=== PATIENT | male | born 1935 | race Caucasian/White ===

== ENCOUNTER 2016-12-25 09:16 | Emergency (ER) | payer MEDICARE, OTHER ==
[2016-12-25 10:04] LABS: BASOPHILS 0.3 % (0.0-2.0); EOSINOPHILS 1.5 % (0-7); HEMATOCRIT 40.2 % (42.0-54.0); HEMOGLOBIN 13.3 g/dL (13.5-17.5); IMMATURE GRANULOCYTES 0.5 % (0-5); LYMPHOCYTES 17.6 % (15-50); MCH 30.6 pg (26.0-34.0); MCHC 33.1 g/dL (31.0-37.0); MCV 92.4 fL (80.0-100.0); MEAN PLATELET VOLUME 10.8 fL (7.4-10.4); MONOCYTES 8.6 % (2-11); NEUTROPHILS 71.5 % (40-80); PLATELET COUNT 175 10x3/uL (130-400); RBC 4.35 10x6/uL (4.20-6.10); RDW 13.1 % (11.5-14.5); WBC 6.6 10x3/uL (4.8-10.8)
[2016-12-25 10:18] LABS: ALBUMIN 3.6 g/dL (3.4-5.0); ALKALINE PHOSPHATASE 47 U/L (46-116); ALT (SGPT) 28 U/L (10-68); CALC OSMOLALITY 288 mosm/kg (275-300); CALCIUM 9.3 mg/dL (8.5-10.1); CARBON DIOXIDE 28.5 mmol/L (21.0-32.0); CHLORIDE - SERUM 105 mmol/L (98-107); CREATININE - SERUM 1.3 mg/dL (0.6-1.3); GLUCOSE 132 mg/dL (74-106); POTASSIUM - SERUM 4.5 mmol/L (3.5-5.1); PROTEIN - SERUM 6.9 g/dL (6.4-8.2); SODIUM 141 mmol/L (136-145); UREA NITROGEN 29 mg/dL (7-18); eGFR NON AFRICAN AMERICAN 56 mL/min (90-120)
[2016-12-25 10:57] LABS: CKMB 2.5 U/L (0.0-3.6); CREATINE KINASE 98 UL (21-232); TROPONIN-I < 0.017 ng/mL (0.000-0.060)
== END 2016-12-25 12:20 | disposition home or self-care (01) ==
LOC: D.ER 09:16
PROVIDERS: Emergency Medicine
DX: R09.1 Pleurisy (principal); I10 Essential (primary) hypertension; E11.9 Type 2 diabetes mellitus without complications; E78.00 Pure hypercholesterolemia, unspecified; I49.3 Ventricular premature depolarization

== ENCOUNTER → 2018-07-22 10:44 | Outpatient (CLI) | payer MEDICARE, OTHER ==
[~2018-07-22] VITALS: Ht 185.4 cm; Wt 115.5 kg
--- NOTE | ~2018-07-22 | HEMODYNAMI ---
PATIENT:TITI GOODWIN MEDICAL RECORD: [id number] : 37 LOCATION:[facility] ADMISSION DATE: 07/22/18 Generatedon:07/22/201814:27 Patient name: TITI GOODWIN Patient #: [id number] SSN: DO B: 1935 Date of study: 07/22/2018 Page: Of Hemodynamic Procedure Report Patient Data Patient Demographics Procedure consent was obtained First Name: TITI Gender: Male Last Name: CHRISTA : 1935 Middle Initial: KLAUS Age: 83 year(s) Patient #: [id number] Race: Unknown Additional ID: [id number] Contact details Address: [address] [place] [address] State: [place] City: [place] Zip code: [address] Admission Admission Data Admission Date: 07/22/2018 Admission Time: 10:44 Height (in.): 73 BSA: 2.38 (m2) Height (cm.): 185.42 BMI: 33.51 (kg/m2) Weight (lbs.): 254 Weight (kg.): 115.21 Procedure Procedure Types Cath Procedure Diagnostic Procedure [facility] w/Coronaries PCI Procedure Coronary Stent Coronary Stent Initial Procedure Description Procedure Date Procedure Date: 07/22/2018 Procedure Start Time: 13:59 Procedure End Time: 14:24 Procedure Staff Name Function Tom Hanks MD Performing Physician Rafa Prado RT Monitor Marco Tesfaye RN Nurse Neida Carpenter RT Scrub Procedure Data Cath Procedure Fluoroscopy Diagnostic fluoroscopy Total fluoroscopy Time: 6.8 time: 6.8 min min Diagnostic fluoroscopy Total fluoroscopy dose: dose: 1343 mGy 1343 mGy Contrast Material Contrast Material Type Amount (ml) Isovue 300 107 Entry Location Entry Primary Successful Side Size Upsize Upsize Entry Closure Gracia ccessful Closure Location (Fr) 1 (Fr) 2 (Fr) Remarks Device Remarks Radial Right 6 Fr Mechanical artery Short Compression Estimated blood loss: 10 ml Diagnostic catheters Device Type Used For End Catheter Placement DIAGNOSTIC Ben 110cm Procedure 5Fr catheter ([id number]) DIAGNOSTIC Jolon 110cm 5 Procedure Fr catheter (452425) Procedure Complications No complications Procedure Medications Medication Administration Route Dosage Oxygen etCO2 Nasal cannula 2 l/min Lidocaine 2% added to field 20 Heparin Flush Bag added to field 2 bags (1000units/500ml NS) 0.9% NaCl I.V. 100 ml/hr Radial Cocktail I.A. 1 syringe (Verapomil 2mg/Nitro 400mcg/Heparin 1500units) Versed I.V. 1 mg Fentanyl I.V. 50 mcg Versed I.V. 1 mg Fentanyl I.V. 50 mcg Heparin Bolus I.V. 74959 units Versed I.V. 1 mg Plavix P.O. 600 mg Hemodynamics Rest BSA: 2.38 (m2) O2 Consumption: Estimated: 264.24 (ml/min) O2 Consumption indexed : Estimated:111.03 (ml/min/m) Heart Rate: 62 (bpm) Pressure Samples Time Site Value (mmHg) Purpose Heart Use Rate(bpm) 14:01 LV 127/-3,10 Snapshot 66 14:18 AO 100/56(75) Snapshot 63 Gradients Valve Time Site Site Mean SEP/DFP Peak To Heart Use 1 2 (mmHg) (sec/min) Peak Rate (mmHg) (bpm) Aortic 14:02 LV AO 64 Snapshots Pre Cath Intra NCS Post Cath Vital Signs Time Heart Resp SPO2 etCO2 NIBP (mmHg) Rhythm Pain Sedation Rate (ipm) (%) (mmHg) Status Level (bpm) 13:41:21 62 17 99 0 150/87(124) NSR 0 (11) 10(A) , No pain 13:46:10 59 17 99 36.1 156/83(124) NSR 0 (11) 10(A) , No pain 13:50:57 59 11 96 0 134/76(104) NSR 0 (11) 10(A) , No pain 13:55:43 60 25 94 0 138/71(100) NSR 0 (11) 9(A) , No pain 14:00:30 61 12 93 0 130/63(86) NSR 0 (11) 9(A) , No pain 14:05:11 63 12 94 0 114/67(97) NSR 0 (11) 9(A) , No pain 14:10:32 61 19 93 0 122/68(101) NSR 0 (11) 9(A) , No pain 14:15:15 60 15 98 38.4 131/67(102) NSR 0 (11) 9(A) , No pain 14:20:00 59 13 95 42.1 117/68(89) NSR 0 (11) 10(A) , No pain 14:24:42 58 11 98 0 128/69(107) NSR 0 (11) 9(A) , No pain Medications Time Medication Route Dose Verified Delivered Reason Not es Effectiveness by by 13:48:36 Oxygen etCO2 2 l/min Tom Buffie used for Nasal Jacinto Tesfaye RN procedure cannula 13:48:45 Lidocaine 2% added 20ml Tom Tom for local to vial Jacinto Hanks MD anesthetic field 13:48:51 Heparin Flush added 2 bags Tom Tom used for Bag to Jacinto Hanks MD procedure (1000units/500ml field NS) 13:49:00 0.9% NaCl I.V. 100 Tom Buffie Per physician ml/hr Jacinto Tesfaye RN 13:49:36 Versed I.V. 1 mg Tom Buffie for sedation Jacinto Tesfaye RN 13:49:42 Fentanyl I.V. 50 mcg Tom Buffie for sedation Jacinto Tesfaye RN 13:54:10 Versed I.V. 1 mg Tom Buffie for sedation Jacinto Tesfaye RN 13:54:13 Fentanyl I.V. 50 mcg Tom Buffie for sedation Jacinto Tesfaye RN 14:00:04 Radial Cocktail I.A. 1 Tom Tom for (Verapomil syringe Jacinto Hanks MD vasodilation 2mg/Nitro 400mcg/Heparin 1500units) 14:12:14 Heparin Bolus I.V. 11,500 Tom Buffie for kae ified units Jacinto Tesfaye RN anticoagulation wtih dr hanks 14:14:18 Versed I.V. 1 mg Tom Buffie for sedation Jacinto Tesfaye RN 14:23:17 Plavix P.O. 600 mg Tom Buffie for Jacinto Tesfaye RN antiplatelet therapy Procedure Log Time Note 13:20:38 Time tracking: Regular hours (M-F 7:00 - 5:00) 13:20:42 Plan of Care:Hemodynamics will remain stable., Cardiac rhythm will remain stable., Comfort level will be maintained., Respiratory function will remain adequate., Patient/ family verbilizes understanding of procedure., Procedure tolerated without complication., Recovers from procedure without complications.. 13:27:47 Marco Tesfaye RN sent for patient. Start room use. 13:35:10 Patient received from Pre/Post Procedure Room to CCL 1 Alert and oriented. Tansferred to table in Supine position. 13:35:11 Warm blankets applied, and anisha hugger turned on for patient comfort. 13:35:11 Correct patient and procedure confirmed by team. 13:35:13 Signed procedure consent form obtained from patient. 13:35:14 ECG and BP/O2 sat monitors applied to patient. 13:35:15 Full Disclosure recording started 13:40:18 Vital chart was started 13:46:59 Baseline sample Acquired. 13:47:06 Rhythm: sinus bradycardia 13:47:18 H&P Date Dictated: 07/09/2018 Within 30 days and on chart., H&P Addendum completed by physician on day of procedure. (MUST COMPLETE FOR ALL OUTPATIENTS). 13:47:18 Pre-procedure instructions explained to patient. 13:47:19 Pre-op teaching completed and patient verbalized understanding. 13:47:23 Family in patients room. 13:47:25 Patient NPO since Midnight. 13:47:27 Is the patient allergic to Iodine/contrast media? No. 13:47:43 Is patient on blood thinner?No 13:47:48 Patient diabetic? Yes. 13:47:49 If diabetic: On Metformin? Yes 13:47:52 If on Metformin: Last Dose? 07/21/2018 13:47:54 Previous problem with sedation/anesthesia? No ? 13:47:55 Snore? Yes 13:47:56 Sleep apnea? No 13:47:57 Deviated septum? No 13:47:58 Opens mouth fully? Yes 13:47:59 Sticks out tongue? Yes 13:48:02 Airway obstruction? No ? 13:48:05 Dentures? Yes IN 13:48:09 Pre procedure: right dorsailis pedis pulse 1+ Palpable, but thready & weak; easily obliterated 13:48:26 Modified Leonardo's test Ulnar < 7 seconds 13:48:29 Patient pain scale 0/10 ?. 13:48:34 IV patent on arrival in left forearm with 0.9% NaCl at [facility]. 13:48:36 Oxygen 2 l/min etCO2 Nasal cannula was administered by Marco Tesfaye RN; used for procedure; 13:48:36 Lab results completed and on chart. 13:48:45 Lidocaine 2% 20ml vial added to field was administered by Tom Hanks MD; for local anesthetic; 13:48:48 Right Radial & Right Groin area was prepped with chlora-prep and draped in sterile fashion 13:48:50 Alarms reviewed by R. N. 13:48:50 Sharps counted by scrub and verified by R.N. 13:48:51 Heparin Flush Bag (1000units/500ml NS) 2 bags added to field was administered by Tom Hanks MD; used for procedure; 13:48:51 --------ALL STOP TIME OUT------ 13:48:52 Final Timeout: patient, procedure, and site verified with staff and physician. All members of the team are in agreement. 13:48:54 Right Radial & Right Groin site verified by team. 13:48:57 Physical assessment completed. ASA score P 2 - A patient with mild systemic disease as per Tom Hanks MD. 13:49:00 0.9% NaCl 100 ml/hr I.V. was administered by Marco Tesfaye RN; Per physician; 13:49:00 Sedation plan: IV Moderate Sedation Medication:Versed, Fentanyl 13:49:36 Versed 1 mg I.V. was administered by Marco Tesfaye RN; for sedation; 13:49:42 Fentanyl 50 mcg I.V. was administered by Marco Tesfaye RN; for sedation; 13:54:10 Versed 1 mg I.V. was administered by Marco Tesfaye RN; for sedation; 13:54:13 Fentanyl 50 mcg I.V. was administered by Marco Tesfaye RN; for sedation; 13:56:34 Use device set Radial Dx or PCI 13:57:42 Tegaderm 4 x 4 (1626W) opened to sterile field. 13:57:43 ACIST Manifold (92578) opened to sterile field. 13:57:44 ACIST Hand Control (31765) opened to sterile field. 13:57:45 ACIST Syringe (46314) opened to sterile field. 13:57:46 Medline Cath Pack ([id number]) opened to sterile field. 13:57:47 Zero performed for pressure channel P1 13:58:37 Bag Decanter (2001S) opened to sterile field. 13:58:40 DIAGNOSTIC WIRE .035 260cm J wire (160369) opened to sterile field. 13:58:41 MBrace Wrist Support ([id number]) opened to sterile field. 13:58:42 SHEATH 6Fr Prelude Radial ([id number]) opened to sterile field. 13:58:52 Procedure started. 13:59:01 Local anesthetic to right radial artery with Lidocaine 2% by Tom Hanks MD.INITIAL ACCESS ONLY 13:59:35 A 6 Fr Short sheath was inserted into the Right Radial artery 14:00:04 Radial Cocktail (Verapomil 2mg/Nitro 400mcg/Heparin 1500units) 1 syringe I.A. was administered by Tom Hanks MD; for vasodilation; 14:00:21 A DIAGNOSTIC Ben 110cm 5Fr catheter (402772) was advanced over the wire and used for Procedure. 14:01:50 LV angiography performed. 14:01:51 LV gram done using FOSTER 14:02:02 EF : 60 % 14:02:05 LV hemodynamics recorded. 14:02:33 Injector settings: Ml/sec: 5, Volume: 15, 14:03:04 RCA angiography performed. 14:04:22 Catheter exchanged over wire. 14:05:36 A DIAGNOSTIC Jolon 110cm 5 Fr catheter (671188) was advanced over the wire and used for Procedure. 14:05:43 LCA angiography performed. 14:06:32 Catheter exchanged over wire. 14:06:36 Use device set HANKS PCI 14:06:47 GUIDE 6FR XBLAD 4.0 catheter (13993768) opened to sterile field. 14:06:50 BMW 300cm [place] 2 J wire ([id number]) opened to sterile field. 14:06:52 INFLATOR Merit BasixCompak (MM4054) opened to sterile field. 14:06:53 TUBING High Pressure Extension Tubing (Hanks) (DJ2088E) opened to sterile field. 14:08:18 6 Fr XBLAD 4 guide catheter was inserted over the wire 14:10:04 Guide Catheter removed. unable to cannulate vessel. 14:10:07 GUIDE 6FR XBLAD 3.5 catheter (30395188) opened to sterile field. 14:10:14 6 Fr XBLAD 3.5 guide catheter was inserted over the wire 14:10:52 Patient Weight : 254 lbs 14:10:58 Patient Height : 73 inches 14:11:51 BMW wire advanced. 14:12:14 Heparin Bolus 11,500 units I.V. was administered by Marco Tesfaye RN; for anticoagulation; verified wtih dr hanks 14:14:18 Versed 1 mg I.V. was administered by Marco Tesfaye RN; for sedation; 14:14:38 Wire advanced across lesion. 14:18:46 Place stent Inflation Number: 1 A INTEGRITY OTW 3.0 X 26 stent ([id number]) was prepped and advanced across the Mid LAD. The stent was deployed at 16 COLE for 0:10 (min:sec). 14:19:42 Stent catheter was removed intact over wire. 14:20:13 Wire removed. 14:20:14 Guide catheter removed. 14:20:18 TR BAND Standard ([id number]) opened to sterile field. 14:20:29 Sheath removed intact; hemostasis achieved with Mechanical Compression to the Right Radial artery. 14:20:34 Procedure ended.(Physican Out) 14:20:52 Fluoroscopy time 06.80 minutes. 14:20:56 Fluoroscopy dose: 1343 mGy 14:20:56 Flurop Dose total: 1343 14:21:00 Contrast amount:Isovue 300 107ml. 14:21:02 Sharps counted by scrub and verified by R.N. 14:21:17 TR band inflated with 12cc of air. 14:21:19 Insertion/operative site no bleeding no hematoma. 14:23:17 Plavix 600 mg P.O. was administered by Marco Tesfaye RN; for antiplatelet therapy; 14:23:19 Post Procedure Pulses reassessed and unchanged 14:23:24 Post-procedure physical assessment completed. ASA score P 2 - A patient with mild systemic disease as per Tom Hanks MD. 14:24:01 Post procedure rhythm: unchanged. 14:24:05 Estimated blood loss: 10 ml 14:24:13 Post procedure instruction explained to patient.Patient verbalizes understanding. 14:24: Patient needs reinforcement of post procedure teaching. 14:24:18 Procedure type changed to Cath procedure, Diagnostic procedure, LHC, LHC w/Coronaries, PCI procedure, Coronary Stent, Coronary Stent Initial 14:24:21 Procedure Complication : No complications 14:24:45 Procedure and supply charges have been captured, reviewed, submitted and are correct. 14:24:47 Vital chart was stopped 14:24:47 See physician's report for complete and final results. 14:24:51 Report given to Pre/Post Procedure Room. 14:24:54 Patient transfered to Pre/Post Procedure Room with Stretcher. 14:24:57 Procedure ended. 14:24:57 Full Disclosure recording stopped 14:26:55 End room use (Document Last) Intervention Summary Intervention Notes Time ActionType Lesion and Equipment Action# Pressure Duration Attributes Used 14:18:46 Place stent Mid LAD INTEGRITY 1 16 00:10 OTW 3.0 X 26 stent ([id number]) Device Usage Item Name Manufacture Quantity Catalog Number Hospital Part Current M inimal Lot# / Charge Number Stock Stock Serial# Code Tegaderm 4 x 4 3M 1 1626W 348707 187716 994019 5 (1626W) ACIST Manifold Acist 1 50190 516240 798586 013626 5 (07419) [employer] Inc ACIST Hand Acist 1 20956 124238 323083 754216 5 Control (99454) [employer] Inc ACIST Syringe Acist 1 70456 275812 553129 895779 2 0 (97772) Medical Systems Inc Medline Cath Cardinal 1 [id number] 604059 [address] [facility] ([id number]) Bag Decanter Microtek 1 2001S 269309 13101 537417 5 (2001S) Medical Inc. DIAGNOSTIC WIRE St Mike 1 458344 613034 219259 406492 3 0 .035 260cm J wire (678316) MBrace Wrist Advanced 1 140-0250-00 817381 39353 493918 5 Support Vascular ([id number]) Dynamics SHEATH 6Fr Merit 1 [id number] 440480 951236 621237 5 Prelude Radial Medical ([id number]) DIAGNOSTIC Terumo 1 40-5023 536907 506635 539859 5 Ben 110cm 5Fr catheter (244964) DIAGNOSTIC Terumo 1 40-5013 122501 498170 430935 5 Jolon 110cm 5 Fr catheter (943398) GUIDE 6FR XBLAD Cardinal 1 [id number] 967072 999309 910354 3 4.0 catheter Health (60449652) BMW 300cm Mendez 1 [id number] 962005 192023 913079 5 [place] 2 J Vascular wire (4989247Z) INFLATOR Merit Merit 1 LK2728 325705 346411 354772 1 5 BasixCompak Medical (NB9103) TUBING High Merit 1 [id number] 227869 56242 868234 1 0 Pressure Medical Extension Tubing (Hanks) (AK6624W) GUIDE 6FR XBLAD Cardinal 1 [id number] 059552 341581 636195 1 0 3.5 catheter Health (57039529) INTEGRITY OTW Medtronic 1 [id number] 553346 637520 4 [id number] 3.0 X 26 stent ([id number]) TR BAND Terumo 1 [id number] 429722 722373 619944 4 0 Standard (WLN40TOM) Signature Audit Sidney Stage Time Signature Unsigned Intra-Procedure 07/22/2018 Rafa Prado 2:27:18 PM RT(R) Signatures Monitor : Rafa Prado RT Signature : Date : Time : [id number] [place] [address]
[~2018-07-22 10:44] MED LIST: ACTOS15 MG PO; BAYER CHEWABLE81 MG PO; BENICAR20 MG PO; GLIMEPIRIDE1 MG PO; GLUCOPHAGE1000 MG PO; HCTZ25 MG PO; HYTRIN1 MG PO; PLAVIX75 MG PO; VITAMIN B650 MG PO; ZOCOR40 MG PO
[2018-07-22 11:30] VITALS: BP 144/71; Ht 185.4 cm; Wt 115.5 kg
[2018-07-22 11:34] LABS: BASOPHILS 0.4 % (0-2); EOSINOPHILS 2.7 % (0-7); HEMATOCRIT 36.9 % (42.0-54.0); HEMOGLOBIN 12.3 g/dL (13.5-17.5); IMMATURE GRANULOCYTES 0.2 % (0-5); LYMPHOCYTES 30.2 % (15-50); MCH 30.1 pg (26.0-34.0); MCHC 33.3 g/dL (31.0-37.0); MCV 90.4 fL (80.0-100.0); MEAN PLATELET VOLUME 10.1 fL (7.4-10.4); MONOCYTES 14.9 % (2-11); NEUTROPHILS 51.6 % (40-80); PLATELET COUNT 173 10x3/uL (130-400); RBC 4.08 10x6/uL (4.20-6.10); RDW 13.6 % (11.5-14.5); WBC 5.6 10x3/uL (4.8-10.8)
[2018-07-22 11:43] LABS: ANION GAP 15.8 mmol/L (8-16); CARBON DIOXIDE 24.8 mmol/L (21.0-32.0); CREATININE - SERUM 1.5 mg/dL (0.6-1.3); POTASSIUM - SERUM 4.6 mmol/L (3.5-5.1)
== END | disposition home or self-care (01) ==
LOC: D.CATH 10:44
PROVIDERS: Internal Medicine Cardiovascular Disease
DX: I25.119 Atherosclerotic heart disease of native coronary artery with unspecified angina pectoris (principal); Z01.812 Encounter for preprocedural laboratory examination

== ENCOUNTER 2018-09-29 11:29 | Outpatient (CLI) | payer MEDICARE, OTHER ==
[~2018-09-29] VITALS: Ht 185.4 cm; Wt 119.1 kg
--- NOTE | ~2018-09-29 | HEMODYNAMI ---
PATIENT:TITI GOODWIN MEDICAL RECORD: [id number] : 37 LOCATION:[facility] ADMISSION DATE: 09/29/18 Generatedon:09/29/201815:13 Patient name: TITI GOODWIN Patient #: [id number] SSN: DO B: 1935 Date of study: 09/29/2018 Page: Of Hemodynamic Procedure Report Patient Data Patient Demographics Procedure consent was obtained First Name: TITI Gender: Male Last Name: CHRISTA : 1935 Middle Initial: KLAUS Age: 83 year(s) Patient #: [id number] Race: Unknown Additional ID: [id number] Contact details Address: [address] [place] [address] State: [place] City: [place] Zip code: [address] Past Medical History Allergies: No known allergies Admission Admission Data Admission Date: 09/29/2018 Admission Time: 11:29 Admit Source: Other Lab Results Lab Result Date: 09/29/2018 Lab Result Time: 0:00 Biochemistry Name Units Result Min Max BUN mg/dl 44 --(----)-* 7 18 Creatinine mg/dl 1.9 --(----)-* 0.6 1.3 CBC Name Units Result Min Max Hemoglobin g/dl 11.3 *-(----)-- 13.5 17.5 Procedure Procedure Types Cath Procedure Diagnostic Procedure PPM/ICD PPM Dual Implant Sedation Charges Moderate Sedation up to 15 minutes Procedure Description Procedure Date Procedure Date: 09/29/2018 Procedure Start Time: 14:39 Procedure End Time: 15:10 Procedure Staff Name Function Cheo Torres MD Performing Physician Kvng Bojorquez MD Assisting physician Merly Cabrales RT Monitor Neida Carpenter RT Scrub Pepe Vaughn RN Nurse Procedure Data Cath Procedure Fluoroscopy Diagnostic fluoroscopy Total fluoroscopy Time: 2.8 time: 2.8 min min Diagnostic fluoroscopy Total fluoroscopy dose: 247 dose: 247 mGy mGy Contrast Material Contrast Material Type Amount (ml) Isovue 300 0 Estimated blood loss: 10 ml Procedure Complications No complications Procedure Medications Medication Administration Route Dosage 0.9% NaCl I.V. 100 ml/hr Oxygen etCO2 Nasal cannula 2 l/min Ancef (1Gm/50ml NS) I.V.P.B 1 g Ancef Irrigation 1 g (1gm/500ml NS) Lidocaine 1% with added to field 40 ml Epi Versed I.V. 2 mg Fentanyl I.V. 100 mcg Fentanyl I.V. 50 mcg Versed I.V. 1 mg Bupivacaine 0.5% added to field 10 ml Lopressor I.V. 5 mg Hemodynamics Rest HGB: 11.3 (g/dl) Heart Rate: 39 (bpm) Snapshots Pre Cath Intra NCS Post Cath Vital Signs Time Heart Resp SPO2 etCO2 NIBP (mmHg) Rhythm Pain Sedation Rate (ipm) (%) (mmHg) Status Level (bpm) 14:09:37 33 11 98 34.6 173/61(134) 2 0 (11) 10(A) degree , No AV pain Block Type II 14:14:05 35 18 100 35.4 172/75(134) 2 0 (11) 10(A) degree , No AV pain Block Type II 14:18:40 36 15 99 30.8 169/57(128) 2 0 (11) 10(A) degree , No AV pain Block Type II 14:23:12 35 12 95 0.7 143/59(114) 2 0 (11) 10(A) degree , No AV pain Block Type II 14:27:37 32 10 96 0 134/57(110) 2 0 (11) 10(A) degree , No AV pain Block Type II 14:31:59 33 11 98 15.8 148/53(101) 2 0 (11) 10(A) degree , No AV pain Block Type II 14:38:03 35 10 95 1.5 152/65(119) 2 0 (11) 10(A) degree , No AV pain Block Type II 14:42:32 36 19 94 0 141/56(96) 2 0 (11) 9(A) degree , No AV pain Block Type II 14:47:49 70 19 96 1.5 133/59(83) 2 0 (11) 9(A) degree , No AV pain Block Type II 14:52:07 37 19 97 0 139/63(96) 2 0 (11) 9(A) degree , No AV pain Block Type II 14:56:29 33 10 96 0 132/58(99) Paced 0 (11) 9(A) , No pain 15:00:48 60 14 98 0 142/62(105) Paced 0 (11) 9(A) , No pain 15:05:06 64 12 97 0 139/69(111) Paced 0 (11) 9(A) , No pain 15:09:26 61 14 97 0 124/64(113) Paced 0 (11) 9(A) , No pain Medications Time Medication Route Dose Verified Delivered Reason Notes Effectiv eness by by 14:18:06 0.9% NaCl I.V. 100 Pepe Pepe Per ml/hr Lorigan Lorigan physician RN RN 14:18:22 Oxygen etCO2 2 Pepe Pepe Per Nasal l/min Lorigan Lorigan physician cannula RN RN 14:19:04 Ancef I.V.P.B 1 g Pepe Pepe Per (1Gm/50ml Lorigan Lorigan physician NS) RN RN 14:19:33 Ancef Topical 1 g Pepe Pepe used for Irrigation added Lorigan Lorigan procedure (1gm/500ml to RN RN NS) field 14:27:16 Lidocaine added 40ml Ppee Pepe for local 1% with Epi to Lorigan Lorigan anesthetic field RN RN 14:35:10 Versed I.V. 2 mg Pepe Pepe for Lorigan Lorigan sedation RN RN 14:35:17 Fentanyl I.V. 100 Pepe Pepe for mcg Lorigan Lorigan sedation RN RN 14:38:17 Fentanyl I.V. 50 Pepe Pepe for mcg Lorigan Lorigan sedation RN RN 14:38:34 Versed I.V. 1 mg Pepe Pepe for Lorigan Lorigan sedation RN RN 14:44:23 Bupivacaine added 10 ml Pepe Pepe for local 0.5% to Lorigan Lorigan anesthetic field RN RN 14:49:43 Lopressor I.V. 5 mg Pepe Pepe for Lorigan Lorigan arrhythmia RN electrocardiograph operator Log Time Note 13:52:27 Informed consent obtained and on chart 13:52:32 Admit Source: Other 13:52:54 Diagnostic Cath status Elective 13:52:55 Time tracking: Regular hours (M-F 7:00 - 5:00) 13:53:00 Plan of Care:Hemodynamics will remain stable., Cardiac rhythm will remain stable., Comfort level will be maintained., Respiratory function will remain adequate., Patient/ family verbilizes understanding of procedure., Procedure tolerated without complication., Recovers from procedure without complications.. 13:53:21 Pepe Vaughn RN sent for patient. Start room use. 13:59:04 Patient received from Pre/Post Procedure Room to CCL 2 Alert and oriented. Tansferred to table in Supine position. 13:59:06 Warm blankets applied, and anisha hugger turned on for patient comfort. 13:59:06 Correct patient and procedure confirmed by team. 13:59:22 H&P Date Dictated: 09/23/2018 Within 30 days and on chart.. 13:59:24 Pre-procedure instructions explained to patient. 13:59:26 Pre-op teaching completed and patient verbalized understanding. 13:59:28 Family in waiting room. 13:59:30 Patient NPO since Midnight. 13:59:39 Patient allergic to No known allergies 13:59:42 Is the patient allergic to Iodine/contrast media? No. 13:59:43 Was the patient premedicated? Yes 14:08:15 Vital chart was started 14:08:18 Full Disclosure recording started 14:12:58 Baseline sample Acquired. 14:13:04 Rhythm: sinus bradycardia 14:13:20 Is patient on blood thinner?No 14:13:22 Patient diabetic? No. 14:13:27 Snore? No 14:13:28 Sleep apnea? No 14:13:36 Dentures? Yes in tight 14:13:41 Patient pain scale 0/10 ?. 14:13:50 IV patent on arrival in left forearm with 0.9% NaCl at [facility]. 14:18:06 0.9% NaCl 100 ml/hr I.V. was administered by Pepe Vaughn RN; Per physician; 14:18:22 Oxygen 2 l/min etCO2 Nasal cannula was administered by Pepe Vaughn RN; Per physician; 14:18:41 Lab results completed and on chart. 14:19:04 Ancef (1Gm/50ml NS) 1 g I.V.P.B was administered by Pepe Vaughn RN; Per physician; 14:19:33 Ancef Irrigation (1gm/500ml NS) 1 g Topical added to field was administered by Pepe Vaughn RN; used for procedure; 14:19:40 Lab Result : Creatinine 1.9 mg/dl 14::40 Lab Result : BUN 44 mg/dl 14:19:40 Lab Result : Hemoglobin 11.3 g/dl 14:19:51 Right chest area was prepped with chlora-prep and draped in sterile fashion 14:19:53 Alarms reviewed by R. N. 14:19:54 Sharps counted by scrub and verified by R.N. 14:19:55 Physician paged 14:21:07 Medtronic Advisa MRI PPM Dual Generator [id number] opened to sterile field. 14:21:07 Medtronic 4574-53 PPM Lead opened to sterile field. 14:21:08 Medtronic 4074-58 PPM Lead opened to sterile field. 14:27:16 Lidocaine 1% with Epi 40ml added to field was administered by Pepe Vaughn RN; for local anesthetic; 14:34:22 Physician arrived 14:34:23 --------ALL STOP TIME OUT------ 14:34:32 Final Timeout: patient, procedure, and site verified with staff and physician. All members of the team are in agreement. 14:34:39 Right chest site verified by team. 14:34:48 Physical assessment completed. ASA score P 2 - A patient with mild systemic disease as per Cheo Torres MD. 14:34:52 Sedation plan: IV Moderate Sedation Medication:Versed, Fentanyl 14:35:10 Versed 2 mg I.V. was administered by Pepe Vaughn RN; for sedation; 14:35:17 Fentanyl 100 mcg I.V. was administered by Pepe Vaughn RN; for sedation; 14:35:31 Procedure started. 14:36:04 Use device set HANK PPM 14:36:54 [employer] representative RANJITH present for procedure. 14:38:17 Fentanyl 50 mcg I.V. was administered by Pepe Vaughn RN; for sedation; 14:38:34 Versed 1 mg I.V. was administered by Pepe Vaughn RN; for sedation; 14:39:08 Grounding pad site Left thigh. 14:39:15 Lidocaine 1% w/epi was administered to right subclavicular area by Kvng Bojorquez MD . 14:39:19 Incision made to right subclavicular area. 14:39:25 Generator pocket made/opened. 14:43:41 PEELAWAY 9FR Safe Sheath (SU9) opened to sterile field. 14:44:08 Ventricular lead inserted and advanced. 14:44:22 PEELAWAY 7FR Safe Sheath (SU7) opened to sterile field. 14:44:23 Bupivacaine 0.5% 10 ml added to field was administered by Pepe Vaughn RN; for local anesthetic; 14:44:36 Cautery Tip Litigation Legal Assistant opened to sterile field. 14:44:37 Cautery Pushbutton Pencil opened to sterile field. 14:44:39 Mepilex Dressing (551773) opened to sterile field. 14:44:41 Immobilizer Extra Large opened to sterile field. 14:45:08 Atrial lead inserted and advanced. 14:49:43 Lopressor 5 mg I.V. was administered by Pepe Vaughn RN; for arrhythmia; 14:57:40 PPM Dual was attached to lead(s) and inserted into pocket. 14:57:47 Device pocket was irrigated with Ancef. 14:57:55 Ventricular lead attachment was completed with 2-0 silk. 14:58:00 Atrial lead attachment was completed with 2-0 silk. 14:59:58 Parameters-- Generator: Mode: DDDR. Lower Rate: 70bpm. Upper Rate: 120bpm. 15:00:55 Parameters--Ventricular P/R Wave: 19mV. Current: .3mA; Threshold: .3V; Impedence: 1190OHMS. 15:01:20 Parameters--Atrial P/R Wave: 3.7mV. Current: .40mA; Threshold: .3V; Impedence: 509OHMS. 15:01:27 Rt Chest incision was dressed with Mepilex dressing. 15:07:37 Procedure ended.(Physican Out) 15:07:58 Fluoroscopy time 02.80 minutes. 15:08:09 Fluoroscopy dose: 247 mGy 15:08:09 Flurop Dose total: 247 15:08:14 Contrast amount:Isovue 300 0ml. 15:08:16 Sharps counted by scrub and verified by R.N. 15:08:24 Insertion/operative site no bleeding no hematoma. 15:08:40 Post-op/insertion site Right Subclavian vein dressed using a Mepilex dressing. 15:08:50 Post right subclavian vein:stable 15:08:53 Post Procedure Pulses reassessed and unchanged 15:08:59 Post-procedure physical assessment completed. ASA score P 2 - A patient with mild systemic disease as per Cheo Torres MD. 15:09:04 Post procedure rhythm: paced 15:09:10 Estimated blood loss: 10 ml 15:09:11 Post procedure instruction explained to patient.Patient verbalizes understanding. 15:09:45 Procedure type changed to Cath procedure, Diagnostic procedure, PPM/ICD, PPM Dual Implant, Sedation Charges, Moderate Sedation up to 15 minutes 15:09:47 Procedure and supply charges have been captured, reviewed, submitted and are correct. 15:10:34 Procedure Complication : No complications 15:10:38 Vital chart was stopped 15:10:42 See physician's report for complete and final results. 15:10:45 Report given to Med II. 15:10:50 Patient transfered to Med II with Bed. 15:10:53 Procedure ended. 15:10:53 Full Disclosure recording stopped 15:11:01 End room use (Document Last) Device Usage Item Name Manufacture Quantity Catalog Hospital Part Current Minimal Lo t# / Number Charge Number Stock Stock Serial# Code Medtronic Medtronic 1 A2DR01 [id number] 5 Advisa MRI PV [id number] PPM Dual EX P.2 Generator 02 A2DR01 Medtronic Medtronic 1 4574-53 276975 526676 5 4574-53 PPM BB [id number] Lead EX P. 2020-07-30 Medtronic Medtronic 1 4074-58 [id number] [id number] 5 4074-58 PPM BB [id number] Lead EX P. 2020-04-03 PEELAWAY Microtek 1 SU9 [id number] [id number] 5 9FR Safe Medical Inc. Sheath (SU9) PEELAWAY Microtek 1 SU7 673322 510087 222258 10 7FR Safe [employer] Inc[employer] Sheath (SU7) Cautery Tip Microtek 1 [id number] 796402 221453 231080 5 Litigation Legal Assistant [employer] Cautery Microtek 1 [id number] 539546 24033 636149 5 Pushbutton Medical Inc. Pencil Mepilex Cardinal 1 546727 697600 289108 [id number] 5 Dressing Health (758547) Immobilizer Cardinal 1 [id number] 396670 284503 556993 5 Extra Large Health Signature Audit [place] [facility] Stage Time Signature Unsigned Intra-Procedure 09/29/2018 Merly Cabrales 3:13:00 PM RT(R) Signatures Monitor : Merly Cabrales Signature : RT Date : Time : [id number] [place] [address]
--- NOTE | ~2018-09-29 | OP ---
PATIENT NAME: TITI SANDOVAL MEDICAL RECORD: [id number] :37 LOCATION:D.CAT ADMISSION DATE: SURGEON: WES WALTON MD DATE OF OPERATION: 09/29/2018 PROCEDURE: Lead portion of permanent pacemaker placement. SURGEON: Kvng Bojorquez MD INDICATION: High-degree AV block, 2:1 AV block. DESCRIPTION OF PROCEDURE: After right subclavian was cannulated via modified Seldinger technique via Dr. Bojorquez, first, under fluoroscopic guidance, I placed the RV lead in RV apex without difficulty. After adequate thresholds and R waves obtained, again under fluoroscopic guidance, I placed the right atrial lead in right atrial appendage without difficulty. After adequate P waves and thresholds were obtained, the leads were attached to appropriate poles of the generator and the pocket was closed via Dr. Bojorquez. IMPRESSION: Successful lead portion of permanent pacemaker on Titi Sandoval. ESTIMATED BLOOD LOSS: Minimal. DISPOSITION: To the floor, stable. TRANSINT:[id number] Voice Confirmation ID: [id number] DOCUMENT ID: [id number] WES WALTON MD at 1303 CC: [id number] DICTATION DATE: 09/29/18 1502 PERSONNEL RESEARCH SCIENTIST: 09/29/18 1601 DEP CLI 09/30/18 [id number] [place] [address]
--- NOTE | ~2018-09-29 | OP ---
PATIENT NAME: TITI GOODWIN MEDICAL RECORD: [id number] :37 LOCATION:D.CAT ADMISSION DATE: SURGEON: KVNG SMITH MD DATE OF OPERATION: 09/29/2018 PREOPERATIVE DIAGNOSIS: 2:1 heart block. POSTOPERATIVE DIAGNOSIS: 2:1 heart block. PROCEDURE: Pacemaker pocket placement as well as introduction of leads into the central venous circulation. This is a cosurgeon case. OCEANOLOGIST: Cheo Corrigan MD GENERAL SURGEON: Kvng Smith MD The risks, possible complications and alternatives to the procedure were explained to the patient. He elects to proceed. OPERATIVE COURSE: The patient was conveyed to the cardiac catheterization laboratory today. IV sedation was induced by the nursing staff under my direction. The right chest was sterilely prepped and draped. Local anesthetic was used to infiltrate the skin and subcutaneous tissues in the right infraclavicular anterior chest. Transverse incision was accomplished. A subcutaneous pocket was created in a caudad direction. Through the pocket, I accessed the right subclavian vein. Under fluoroscopy, I watched as the guidewire went down the right innominate vein and then into the superior vena cava. A 9-Upper Sorbian dilator sheath was advanced. The dilator was removed. Through the sheath, a ventricular lead was placed. The Peel-Away sheath was then removed. Dr. Cheo Corrigan then positioned the lead and obtained appropriate thresholds. I sutured the lead down to the underlying pectoralis muscle and fascia with 2-0 Ti-Cron sutures. Over the secondary lead, a 7-Upper Sorbian dilator sheath was advanced. The dilator and wire were removed. Through the sheath, the atrial lead was advanced. The Peel-Away sheath was removed. Dr. Cheo Corrigan then positioned the atrial lead. Appropriate thresholds were obtained. I then sutured the lead down to the underlying pectoralis fascia and muscle with 2-0 Ti-Crons. We confirmed the ventricular lead serial number and this was placed in the ventricular dock of the pacemaker generator. We then confirmed the atrial lead serial number and placed this in the atrial dock of the pacemaker generator. I locked down both leads with a wrench. I tried to dislodge the lead and was unable to do so. I then placed the pacemaker in the pacemaker pocket with care paid to place the leads posterior to the pacemaker generator. I irrigated the pacemaker pocket. The subdermis was approximated with interrupted 3-0 Vicryls. The skin was approximated with a running intracuticular 3-0 Vicryl. Sterile dressings were applied. I then checked one more time under fluoroscopy. The ventricular lead and atrial lead appeared to be well positioned and had not been dislodged. TRANSINT:[id number] Voice Confirmation ID: [id number] DOCUMENT ID: [id number] OPERATIVE REPORT [id number] TITI GOODWIN, KVNG COTO at 1653 CC: [id number] DICTATION DATE: 09/29/18 1600 HUMAN RESOURCES HR REPRESENTATIVE: 09/29/18 2146 DEP CLI 09/30/18 [id number] [place] [address]
[2018-09-29 12:29] VITALS: BP 160/56; BMI 33.7
[2018-09-29 13:10] LABS: HEMATOCRIT 34.9 % (42.0-54.0); HEMOGLOBIN 11.3 g/dL (13.5-17.5); MCH 29.7 pg (26.0-34.0); MCHC 32.4 g/dL (31.0-37.0); MCV 91.8 fL (80.0-100.0); MEAN PLATELET VOLUME 10.5 fL (7.4-10.4); RBC 3.8 10x6/uL (4.20-6.10); RDW 13.8 % (11.5-14.5); WBC 5.6 10x3/uL (4.8-10.8)
[2018-09-29 13:20] LABS: ANION GAP 9.4 mmol/L (8-16); CARBON DIOXIDE 29.2 mmol/L (21.0-32.0); CREATININE - SERUM 1.9 mg/dL (0.6-1.3); POTASSIUM - SERUM 4.6 mmol/L (3.5-5.1)
[2018-09-29 13:31] LABS: APTT 29.3 SECONDS (22.8-39.4); INR 1.07 (0.85-1.17); PROTIME 13.6 SECONDS (11.6-15.0)
[2018-09-29 15:52] VITALS: BP 138/79; Ht 185.4 cm; Wt 119.1 kg
[2018-09-29 20:00] VITALS: BP 171/78
[2018-09-30 01:24] VITALS: BP 148/88
[2018-09-30 06:19] VITALS: BP 128/67
[2018-09-30 09:55] VITALS: BP 156/84
[2018-09-30 09:59] VITALS: BP 156/84
== END 2018-09-30 10:10 | disposition home or self-care (01) ==
LOC: D.CATH 11:29 → D.M2 15:10 → D.CATH 09-30 10:10
PROVIDERS: Internal Medicine Interventional Cardiology
DX: I44.1 Atrioventricular block, second degree (principal); I10 Essential (primary) hypertension; E11.9 Type 2 diabetes mellitus without complications; Z87.891 Personal history of nicotine dependence

== ENCOUNTER 2019-05-10 09:50 | Emergency (ER) | payer MEDICARE, OTHER ==
[~2019-05-10] VITALS: Ht 185.4 cm; Wt 118.2 kg
[2019-05-10 09:55] VITALS: Ht 185.4 cm; Wt 118.2 kg
[2019-05-10 10:21] LABS: BASOPHILS 1.5 % (0-2); EOSINOPHILS 4.8 % (0-7); HEMATOCRIT 34.9 % (42.0-54.0); HEMOGLOBIN 11.6 g/dL (13.5-17.5); IMMATURE GRANULOCYTES 0.8 % (0-5); LYMPHOCYTES 23.8 % (15-50); MCHC 33.2 g/dL (31.0-37.0); MCV 90.2 fL (80.0-100.0); MEAN PLATELET VOLUME 9.5 fL (7.4-10.4); MONOCYTES 8.6 % (2-11); NEUTROPHILS 60.5 % (40-80); PLATELET COUNT 202 10x3/uL (130-400); RBC 3.87 10x6/uL (4.20-6.10); RDW 13.8 % (11.5-14.5); WBC 4.8 10x3/uL (4.8-10.8)
[2019-05-10 10:39] LABS: APTT 30.3 SECONDS (22.8-39.4); INR 1.02 (0.85-1.17); PROTIME 12.9 SECONDS (11.6-15.0)
[2019-05-10 10:41] LABS: ALBUMIN 3.1 g/dL (3.4-5.0); ALKALINE PHOSPHATASE 60 U/L (46-116); ALT (SGPT) 28 U/L (10-68); BILIRUBIN - TOTAL 0.26 mg/dL (0.2-1.3); CALC OSMOLALITY 300 mosm/kg (275-300); CALCIUM 9.1 mg/dL (8.5-10.1); CARBON DIOXIDE 30.1 mmol/L (21.0-32.0); CHLORIDE - SERUM 105 mmol/L (98-107); CREATININE - SERUM 2.4 mg/dL (0.6-1.3); POTASSIUM - SERUM 5.1 mmol/L (3.5-5.1); PROTEIN - SERUM 6.9 g/dL (6.4-8.2); SODIUM 141 mmol/L (136-145); UREA NITROGEN 49 mg/dL (7-18); eGFR NON AFRICAN AMERICAN 28 mL/min (90-120)
[2019-05-10 10:46] LABS: GLUCOSE 222 mg/dL (74-106)
[2019-05-10 10:48] LABS: CREATINE KINASE 86 UL (21-232); MAGNESIUM - SERUM 1.6 mg/dL (1.8-2.4)
[2019-05-10 10:53] LABS: TROPONIN-I < 0.017 ng/mL (0.000-0.060)
[2019-05-10 11:04] LABS: APPEARANCE CLEAR (CLEAR); BILIRUBIN NEGATIVE (NEGATIVE); COLOR YELLOW (YELLOW); GLUCOSE NEGATIVE (NEGATIVE); KETONE NEGATIVE (NEGATIVE); NITRITE NEGATIVE (NEGATIVE); PROTEIN NEGATIVE (NEGATIVE); UROBILINOGEN NORMAL (NORMAL)
[2019-05-10 11:06] LABS: BACTERIA FEW /hpf (NONE SEEN); EPITHELIAL CELLS 0-5 /hpf (0-5); RED CELLS - URINE 0-5 /hpf (0-5); WHITE CELLS - URINE 0-5 /hpf (0-5)
[2019-05-10 11:14] LABS: CKMB 2.4 U/L (0.0-3.6)
[2019-05-10 11:17] LABS: MAGNESIUM - SERUM 1.5 mg/dL (1.8-2.4)
[2019-05-10 12:06] VITALS: BP 111/61
== END 2019-05-10 12:07 | disposition home or self-care (01) ==
LOC: D.ER 09:50
PROVIDERS: Family Medicine
DX: R53.1 Weakness (principal); Z86.79 Personal history of other diseases of the circulatory system; Z95.0 Presence of cardiac pacemaker

== ENCOUNTER 2020-01-07 06:23 | Outpatient (CLI) | payer MEDICARE, OTHER ==
[~2020-01-07] VITALS: Ht 185.4 cm; Wt 121.4 kg
--- NOTE | ~2020-01-07 | HEMODYNAMI ---
PATIENT:TITI GOODWIN MEDICAL RECORD: [id number] : 37 LOCATION:D.CAT ADMISSION DATE: 01/07/20 Generatedon:01/07/20208:47 Patient name: TITI GOODWIN Patient #: [id number] SSN: [id number] : 1935 Date of study: 01/07/2020 Page: Of Hemodynamic Procedure Report Patient Data Patient Demographics Procedure consent was obtained First Name: TITI Gender: Male Last Name: CHRISTA : 1935 Middle Initial: KLAUS Age: 84 year(s) Patient #: [id number] Race: SSN: [id number] Additional ID: [id number] Contact details Address: [address] [place] [address] State: [place] City: [place] Zip code: [address] Past Medical History Performed procedures and imaging results Date Procedure Procedure Results Comments 12/28/2019 Stress testing Positive->Intermediate with SPECT MPI risk Allergies: No known allergies Admission Admission Data Admission Date: 01/07/2020 Admission Time: 6:23 Arrival Date: 01/07/2020 Arrival Time: 0:00 Admit Source: Other Insurance Payor: Medicare HIC #: [id number] Height (in.): 73 BSA: 2.44 (m2) Height (cm.): 185.42 BMI: 35.3 (kg/m2) Weight (lbs.): 267.55 Weight (kg.): 121.36 Lab Results Lab Result Date: 01/07/2020 Lab Result Time: 0:00 Biochemistry Name Units Result Min Max BUN mg/dl 33 --(----)-* 7 18 Creatinine mg/dl 1.6 --(----)-* 0.6 1.3 eGFR ml/min 44 *-(----)-- 90 120 NONAFRICAN CBC Name Units Result Min Max Hematocrit % 37.3 *-(----)-- 42 54 Hemoglobin g/dl 12.1 *-(----)-- 13.5 17.5 Procedure Procedure Types Cath Procedure Diagnostic Procedure [facility] w/Coronaries Sedation Charges Moderate Sedation up to 30 minutes PCI Procedure Coronary Stent Coronary Stent Initial Procedure Description Procedure Date Procedure Date: 01/07/2020 Procedure Start Time: 8:09 Procedure End Time: 8:43 Procedure Staff Name Function Tom Casey MD Performing Physician Malia Shannon RN Entomology Professor Tita Bowen RT Scrub Daniela Thibodeaux RT Monitor Marco Tesfaye RN Nurse Indication Acute coronary syndrome Coronary risk factors Procedure Data Cath Procedure Fluoroscopy Diagnostic fluoroscopy Total fluoroscopy Time: 8.3 time: 8.3 min min Diagnostic fluoroscopy Total fluoroscopy dose: dose: 1506 mGy 1506 mGy Contrast Material Contrast Material Type Amount (ml) Isovue 370 105 Entry Location Entry Primary Successful Side Size Upsize Upsize Entry Closure Succes sful Closure Location (Fr) 1 (Fr) 2 (Fr) Remarks Device Remarks Femoral Right 6 Fr Exoseal artery Short Estimated blood loss: 10 ml Diagnostic catheters Device Type Used For End Catheter Placement MULTIPACK JL 4.0 5Fr Procedure catheter MULTIPACK 3DRC 5Fr Procedure catheter MULTIPACK Pigtail 5 Fr Procedure catheter Procedure Complications No complications Procedure Medications Medication Administration Route Dosage Oxygen etCO2 Nasal cannula 2 l/min Lidocaine 2% added to field 20 Heparin Flush Bag added to field 2 bags (1000units/500ml NS) 0.9% NaCl I.V. 100 ml/hr Versed I.V. 1 mg Fentanyl I.V. 50 mcg Heparin Bolus I.V. 53413 units Versed I.V. 1 mg Fentanyl I.V. 50 mcg Plavix P.O. 600 mg Hemodynamics Rest BSA: 2.44 (m2) HGB: 12.1 (g/dl) O2 Consumption: Estimated: 274.89 (ml/min) O2 Co nsumption indexed: Estimated:112.66 (ml/min/m) Heart Rate: 67 (bpm) Pressure Samples Time Site Value (mmHg) Purpose Heart Use Rate(bpm) 8:17 LV 123/17,17 Snapshot 65 Gradients Valve Time Site Site Mean SEP/DFP Peak To Heart Use 1 2 (mmHg) (sec/min) Peak Rate (mmHg) (bpm) Aortic 8:18 LV AO 63 Snapshots Pre Cath Intra NCS Post Cath Vital Signs Time Heart Resp SPO2 etCO2 NIBP (mmHg) Rhythm Pain Sedation Rate (ipm) (%) (mmHg) Status Level (bpm) 7:57:39 63 16 96 39.4 146/72(117) NSR 0 (11) 10(A) , No pain 8:02:07 60 17 96 38.6 139/65(107) NSR 0 (11) 10(A) , No pain 8:06:23 60 13 94 18.1 120/62(92) NSR 0 (11) 9(A) , No pain 8:10:45 61 15 94 9.8 126/64(95) NSR 0 (11) 9(A) , No pain 8:15:10 60 11 96 33.3 139/68(109) NSR 0 (11) 9(A) , No pain 8:19:34 61 12 93 10.6 143/72(119) NSR 0 (11) 9(A) , No pain 8:23:58 61 13 93 0 129/64(99) NSR 0 (11) 9(A) , No pain 8:28:22 60 11 93 0 126/63(106) NSR 0 (11) 9(A) , No pain 8:32:44 85 13 94 9.1 136/73(104) NSR 0 (11) 9(A) , No pain 8:37:04 61 14 95 0 136/68(114) NSR 0 (11) 10(A) , No pain 8:41:33 59 13 98 41.7 142/67(117) NSR 0 (11) 10(A) , No pain Medications Time Medication Route Dose Verified Delivered Reason Notes Effectiveness by by 8:00:23 0.9% NaCl I.V. 100 Tom Buffie for sedation ml/hr Jacinto Tesfaye RN 8:00:24 Oxygen etCO2 2 Tom Buffie used for Nasal l/min Jacinto Tesfaye RN procedure cannula 8:00:32 Lidocaine 2% added 20ml Tom Tom for local to vial Jacinto Casey MD anesthetic field 8:00:39 Heparin Flush added 2 bags Tom Tom used for Bag to Jacinto Casey MD procedure (1000units/500ml field NS) 8:02:28 Versed I.V. 1 mg Tom Buffie for sedation Jacinto Tesfaye RN 8:02:34 Fentanyl I.V. 50 mcg Tom Buffie for sedation Jacinto Tesfaye RN 8:23:52 Heparin Bolus I.V. 10,000 Tom Buffie for verif ied units Jacinto Tesfaye RN anticoagulation with dr casey 8:26:37 Versed I.V. 1 mg Tom Buffie for sedation Jacinto Tesfaye RN 8:33:30 Fentanyl I.V. 50 mcg Tom Buffie for sedation Jacinto Tesfaye RN 8:45:47 Plavix P.O. 600 mg Tom Buffie for Jacinto Tesfaye RN antiplatelet therapy Procedure Log Time Note 7:39:40 Informed consent obtained and on chart 7:42:26 Arrival Date: 01/07/2020 12:00:00 AM 7:42:27 Admit Source: Other 7:42:34 Insurance Payor : Medicare 7:42:58 Patient Height : 73 inches 7:43:02 Patient Weight : 267.55 lbs 7:43:33 Lab Result : Creatinine 1.6 mg/dl 7:43:33 Lab Result : BUN 33 mg/dl 7:43:33 Lab Result : eGFR NONAFRICAN 44 ml/min 7:43:33 Lab Result : Hematocrit 37.3 % 7:43:33 Lab Result : Hemoglobin 12.1 g/dl 7:43:40 Diagnostic Cath Status : Elective 7:43:41 Marco Tesfaye RN sent for patient. Start room use. 7:44:44 Indication : Acute coronary syndrome 7:44:45 Indication : Coronary risk factors 7:45:08 Lab results completed and on chart. 7:45:24 Stress Test: yes; abnormal APICAL 7:45:30 Risk of Mortality: 2.1 7:45:33 Risk of blood transfusion: 3.2 7:45:36 Risk of SIMEON: 6.8 7:45:38 Alarms reviewed by R. N. 7:45:39 Sharps counted by scrub and verified by R.N. 7:45:44 Time tracking: Regular hours (M-F 7:00 - 5:00) 7:45:49 Plan of Care:Hemodynamics will remain stable., Cardiac rhythm will remain stable., Comfort level will be maintained., Respiratory function will remain adequate., Patient/ family verbilizes understanding of procedure., Procedure tolerated without complication., Recovers from procedure without complications.. 7:45:54 Procedure Status Elective Heart Cath (OP). 7:47:54 H&P Date Dictated: 12/14/2019 Within 30 days and on chart.. 7:48:01 Patient allergic to No known allergies 7:48:58 Patient received from Pre/Post Procedure Room to CCL 1 Alert and oriented. Tansferred to table in Supine position. 7:49:00 Warm blankets applied, and anisha hugger turned on for patient comfort. 7:49:00 Correct patient and procedure confirmed by team. 7:49:01 ECG and BP/O2 sat monitors applied to patient. 7:49:05 Pre-procedure instructions explained to patient. 7:49:05 Pre-op teaching completed and patient verbalized understanding. 7:49:16 Family in waiting room. 7:49:17 Patient NPO since Midnight. 7:54:16 Is the patient allergic to Iodine/contrast media? No. 7:54:18 Is patient on blood thinner?No 7:54:56 Patient diabetic? Yes. 7:54:57 If diabetic: On Metformin? Yes 7:54:59 If on Metformin: Last Dose? 01/05/2020 7:55:02 Previous problem with sedation/anesthesia? No ? 7:55:03 Snore? Yes 7:55:04 Sleep apnea? No 7:55:07 Deviated septum? No 7:55:08 Opens mouth fully? Yes 7:55:09 Sticks out tongue? Yes 7:55:12 Airway obstruction? No ? 7:55:16 Dentures? Yes IN 7:55:44 Pre procedure: right dorsailis pedis pulse 1+ Palpable, but thready & weak; easily obliterated 7:55:51 Patient pain scale 0/10 ?. 7:55:56 IV patent on arrival in left hand with 0.9% NaCl at O. 7:56:01 Right groin area was prepped with chlora-prep and draped in sterile fashion 7:56:11 RADIAL PULSE TOO WEAK. 7:56:19 Full Disclosure recording started 7:56:21 Vital chart was started 7:56:59 Baseline sample Acquired. 7:57:07 Rhythm: sinus rhythm , paced 7:57:12 Baseline sample Acquired. 7:57:20 Use device set Femoral Dx 7:57:21 ACIST Syringe (61935) opened to sterile field. 7:57:22 Bag Decanter (2001S) opened to sterile field. 7:57:23 ACIST Hand Control (45884) opened to sterile field. 7:57:23 ACIST Manifold (51407) opened to sterile field. 7:57:24 Tegaderm 4 x 4 (1626W) opened to sterile field. 7:57:26 Medline Cath Pack ([id number]) opened to sterile field. 7:57:28 DIAGNOSTIC Multipack 5Fr catheter set (IQ9518) opened to sterile field. 7:57:28 SHEATH 5FR Ryder (PUQ401) opened to sterile field. 7:57:29 EMERALD Guide Wire (104-100) opened to sterile field. 8:00:23 0.9% NaCl 100 ml/hr I.V. was administered by Marco Tesfaye RN; for sedation; Verbal order read back and verified. 8:00:24 Oxygen 2 l/min etCO2 Nasal cannula was administered by Marco Tesfaye RN; used for procedure; Verbal order read back and verified. 8:00:32 Lidocaine 2% 20ml vial added to field was administered by Tom Casey MD; for local anesthetic; Verbal order read back and verified. 8:00:39 Heparin Flush Bag (1000units/500ml NS) 2 bags added to field was administered by Tom Casey MD; used for procedure; Verbal order read back and verified. 8:00:48 --------ALL STOP TIME OUT------ 8:00:49 Final Timeout: patient, procedure, and site verified with staff and physician. All members of the team are in agreement. 8:00:50 Right groin site verified by team. 8:00:53 Fire Safety Assessment: A--An alcohol-based skin anteseptic being used preoperatively., C--Open oxygen or nitrous oxide is being used., D--An ESU, laser, or fiber-optic light is being used. 8:00:57 Physical assessment completed. ASA score P 2 - A patient with mild systemic disease as per Tom Casey MD. 8:01:02 3b) 30-44 Moderately reduced kidney function. 8:01:06 Maximum allowable contrast dose (3.7 X eGFR X 0.75)122 ml. 8:01:10 Sedation plan: IV Moderate Sedation Medication:Versed, Fentanyl 8:02:28 Versed 1 mg I.V. was administered by Marco Tesfaye RN; for sedation; Verbal order read back and verified. 8:02:34 Fentanyl 50 mcg I.V. was administered by Marco Tesfaye RN; for sedation; Verbal order read back and verified. 8:09:06 Procedure started. 8:09:09 Local anesthetic to right femoral artery with Lidocaine 2% by Tom Casey MD.INITIAL ACCESS ONLY 8:09:50 A 6 Fr Short sheath was inserted into the Right Femoral artery 8:10:07 A MULTIPACK JL 4.0 5Fr catheter was advanced over the wire and used for Procedure. 8:11:23 LCA angiography performed. 8:13:19 Catheter exchanged over wire. 8:13:53 A MULTIPACK 3DRC 5Fr catheter was advanced over the wire and used for Procedure. 8:14:46 RCA angiography performed. 8:15:06 ACCDominant side:Right 8:15:12 Catheter exchanged over wire. 8:15:46 A MULTIPACK Pigtail 5 Fr catheter was advanced over the wire and used for Procedure. 8:16:07 Injector settings: Ml/sec: 5, Volume: 15, 8:16:10 LV gram done using FOSTER 8:17:28 LV hemodynamics recorded. 8:17:43 EF : 50 % 8:17:55 Catheter exchanged over wire. 8:18:00 Proceeding to intervention. 8:18:05 Use device set CASEY PCI 8:18:13 TUBING High Pressure Extension Tubing (Casey) ([id number]) opened to sterile field. 8:18:16 SHEATH 6FR Ryder (MSB509) opened to sterile field. 8:18:21 INFLATOR Merit BasixCompak (RX3650) opened to sterile field. 8:18:28 GUIDE 6FR XBLAD 3.5 catheter ([id number]) opened to sterile field. 8:18:43 Asahi Minamo 300cm wire opened to sterile field. 8:18:53 Pre PCI Site: [place] LAD has 80% stenosis. 8:22:35 6 Fr XBLAD 3.5 guide catheter was inserted over the wire 8:22:38 MINAMO 300 wire advanced. 8:23:52 Heparin Bolus 10,000 units I.V. was administered by Marco Tesfaye RN; for anticoagulation; verified with dr casey Verbal order read back and verified. 8:26:37 Versed 1 mg I.V. was administered by Marco Tesfaye RN; for sedation; Verbal order read back and verified. 8:30:26 Inflate balloon Inflation number: 1 A Mozec Rx 3.0 x 20 balloon was prepped and advanced across the Mid LAD , then inflated to 10 COLE for 0:00 (min:sec) . 8:33:30 Fentanyl 50 mcg I.V. was administered by Marco Tesfaye RN; for sedation; Verbal order read back and verified. 8:33:37 Balloon Catheter was removed intact over wire. 8:37:27 Place stent Inflation Number: 1 A JEY OTW 3.0 x 34 stent ([id number]) was prepped and advanced across the Mid LAD1 . The stent was deployed at 10 COLE for 0:00 (min:sec) . 8:38:18 Stent catheter was removed intact over wire. 8:38:45 Wire removed. 8:38:46 Guide catheter removed. 8:38:51 EXOSEAL 6Fr (EX600) opened to sterile field. 8:39:02 Sheath removed intact; hemostasis achieved with Exoseal to the Right Femoral artery. 8:39:24 Fluoroscopy time 08.30 minutes. 8:39:28 Flurop Dose total: 1506 8:39:28 Fluoroscopy dose: 1506 mGy 8:39:34 Dose Area Product 68009 mGy/cm. 8:39:45 Contrast amount:Isovue 370 105ml. 8:39:47 Maximum allowable dose exceeded? No. 8:39:49 Sharps counted by scrub and verified by R.N. 8:39:54 Procedure ended.(Physican Out) 8:40:10 Post-op/insertion site Right Femoral artery dressed using a 4 x 4 and Tegaderm. 8:40:15 Post right femoral artery:stable, soft, clean and dry 8:40:17 Post Procedure Pulses reassessed and unchanged 8:40:21 Post-procedure physical assessment completed. ASA score P 2 - A patient with mild systemic disease as per Tom Casey MD. 8:40:24 Post procedure rhythm: unchanged. 8:40:27 Estimated blood loss: 10 ml 8:40:28 Post procedure instruction explained to patient.Patient verbalizes understanding. 8:40:29 Patient needs reinforcement of post procedure teaching. 8:40:58 Procedure type changed to Cath procedure, Diagnostic procedure, LHC, [facility] w/Coronaries, Sedation Charges, Moderate Sedation up to 30 minutes, PCI procedure, Coronary Stent, Coronary Stent Initial 8:42:26 Procedure and supply charges have been captured, reviewed, submitted and are correct. 8:42:30 Procedure Complication : No complications 8:42:48 [facility] Findings: MVD- PCI performed (see procedure note) 8:42:50 Operative report dictated upon procedure completion. 8:42:50 See physician's report for complete and final results. 8:42:52 Report given to Pre/Post Procedure Room. 8:42:56 Patient transfered to Pre/Post Procedure Room with Stretcher. 8:43:48 Vital chart was stopped 8:43:51 Procedure ended. 8:43:51 Full Disclosure recording stopped 8:44:05 ACC-PCI Only Patient was given prescriptions, or instructed by Tom Casey MD to start/continue the following medications upon discharge: Plavix 8:45:22 ACT drawn and resulted at out of range high seconds. (normal therapeutic range 180-240 seconds). 8:45:47 Plavix 600 mg P.O. was administered by Marco Tesfaye RN; for antiplatelet therapy; Verbal order read back and verified. 8:46:12 End room use (Document Last) 8:46:22 End room use (Document Last) 8:46:40 End room use (Document Last) Intervention Summary Intervention Notes Time ActionType Lesion and Equipment Action# Pressure Duration Attributes Used 8:30:26 Inflate Mid LAD Mozec Rx 3.0 1 10 00:00 balloon x 20 balloon 8:37:27 [address] stent Mid LAD1 JEY OTW 3.0 1 10 00:00 x 34 stent ([id number]) Device Usage Item Name Manufacture Quantity Catalog Hospital Part Current Mini mal Lot# / Number Charge Number Stock Stock Serial# Code ACIST Syringe Acist 1 81032 899813 075911 703759 20 (29529) Medical Systems Inc Bag Decanter Microtek 1 048312 58662 234848 5 () Medical Inc. ACIST Hand Acist 1 56293 318609 409473 188667 5 Control Medical (37639) Systems Inc ACIST Acist 1 01270 598649 648339 533433 5 Sher.ly Inc. (68532) Systems Inc Tegaderm 4 x 3M 1 1626W 462576 848459 390369 5 4 (1626W) Medline Cath Medline 1 [id number] 648929 36733 073075 5 Pack ([id number]) DIAGNOSTIC Cardinal 1 ZT8891 602520 35040 326860 30 Multipack 5Fr Health catheter set (PO4623) SHEATH 5FR Terumo 1 KAK072 867642 479357 840650 5 Ryder (PXK420) EMERALD Guide Cardinal 1 502-455 876351 256654 256648 5 Wire Health (502455) MULTIPACK JL Cardinal 1 650730 5 4.0 5Fr Health catheter MULTIPACK Cardinal 1 998297 5 3DRC 5Fr Health catheter MULTIPACK Cardinal 1 670740 5 Pigtail 5 Fr Health catheter TUBING High Merit 1 [id number] 619340 22127 941427 10 Pressure Medical Extension Tubing (Casey) ([id number]) SHEATH 6FR Terumo 1 ILH492 817999 623252 246403 40 Ryder (QHN394) INFLATOR Merit 1 ZC1436 738731 852412 177943 15 Merit Medical BasixCompak (RD0217) GUIDE 6FR Cardinal 1 [id number] 659109 500622 151402 10 XBLAD 3.5 Health catheter (06837190) [facility] Intecc 1 [id number] 970001 1280694 742791 0 300cm wire Mozec Rx 3.0 Cardinal 1 [id number] 581269 82470 375313 5 UMOD69 x 20 balloon Health JEY OTW 3.0 Medtronic 1 [id number] 288235 7903455 115360 5 [id number] x 34 stent ([id number]) EXOSEAL 6Fr Cardinal 1 EX600 944969 115499 860837 10 (EX600) Health Signature Audit [place] Stage Time Signature Unsigned Intra-Procedure 01/07/2020 Daniela Thibodeaux 8:46:22 AM RT(R) Intra-Procedure 01/07/2020 Marco Tesfaye RN 8:46:40 AM Intra-Procedure 01/07/2020 Tom Casey MD 8:47:[address] [address]
[2020-01-07 07:07] VITALS: BP 137/76; Ht 185.4 cm; Wt 121.4 kg
[2020-01-07 07:07] LABS: BASOPHILS 0.4 % (0-2); EOSINOPHILS 4.1 % (0-7); HEMATOCRIT 37.3 % (42.0-54.0); HEMOGLOBIN 12.1 g/dL (13.5-17.5); IMMATURE GRANULOCYTES 0.2 % (0-5); LYMPHOCYTES 22.7 % (15-50); MCH 30.2 pg (26.0-34.0); MCHC 32.4 g/dL (31.0-37.0); MEAN PLATELET VOLUME 9.7 fL (7.4-10.4); MONOCYTES 14.3 % (2-11); NEUTROPHILS 58.3 % (40-80); PLATELET COUNT 217 10x3/uL (130-400); RBC 4.01 10x6/uL (4.20-6.10); RDW 13.4 % (11.5-14.5); WBC 5.7 10x3/uL (4.8-10.8)
[2020-01-07 07:21] LABS: ANION GAP 11.3 mmol/L (8-16); CARBON DIOXIDE 29.1 mmol/L (21.0-32.0); CREATININE - SERUM 1.6 mg/dL (0.6-1.3); LDL-HDL RATIO 1.9 ratio (1.5-3.5); POTASSIUM - SERUM 4.4 mmol/L (3.5-5.1)
--- NOTE | 2020-01-07 09:00 | NUR ---
REC'D TO ROOM 6 VIA STRETCHER FROM STAPLE CUTTER. MONITORS ESTAB. FAMILY AT BS. SEE ENGINEERING JOB TITLES. ALARMS ON AND C/L IN REACH.
[2020-01-07] MEDS ORDERED: PLAVIX75 MG PO (09:12)
--- NOTE | 2020-01-07 09:15 | NUR ---
R GROIN SITE SOFT, NO S/S BLEEDING OR HEMATOMA. VSS. FAMILY AT .
--- NOTE | 2020-01-07 09:44 | NUR ---
R GROIN SITE SOFT, NO S/S BLEEDING OR HEMATOMA. VSS. PT DENIES NEEDS. FALLS BACK TO SLEEP EASILY. ALARMS ON .
--- NOTE | 2020-01-07 09:57 | NUR ---
R GROIN SITE SOFT, NO S/S BLEEDING OR HEMATOMA. VSS. FAMILY AT .
--- NOTE | 2020-01-07 10:31 | NUR ---
R GROIN SITE C/D/I, NO S/S BLEEDING. PULSES PALP.VSS. ICE CHIPS PROVIDED. ALARMS ON AND C/L IN REACH.
--- NOTE | 2020-01-07 11:01 | NUR ---
R GROIN SITE C/D/I, NO S/S BLEEDING OR HEMATOMA. VSS. PT DENIES NEEDS. ALARMS ON AND C/L IN REACH.
--- NOTE | 2020-01-07 11:30 | NUR ---
PT REPOSITIONED UP IN BED FOR COMFORT. R GROIN SITE C/D/I, NO S/S BLEEDING OR HEMATOMA. TAKING ICE CHIPS. ALARMS ON AND C/L IN REACH.
--- NOTE | 2020-01-07 12:04 | NUR ---
Pete DUONG, C/D/I. HOB ELEVATED AND SANDWICH TRAY PROVIDED. FAMILY AT .
--- NOTE | 2020-01-07 12:48 | NUR ---
R GROIN SITE SOFT, C/D/I. PIV D/C'D INTACT, DSG APPLIED. PT ALLOWED TO GET UP WITH ASSISTING.
--- NOTE | 2020-01-07 12:55 | NUR ---
ALL DISCHARGE INSTRUCTIONS REVIEWED WITH PT AND FAMILY. [facility] CALLED IN TO [facility] PER PT REQUEST.
--- NOTE | 2020-01-07 13:07 | NUR ---
PT D/C'D VIA WC TO PRIVATE VEHICLE WITH AND GRAND DAUGHTER. PT HAS ALL BELONGINGS AND PAPERWORK.
== END 2020-01-07 13:07 | disposition home or self-care (01) ==
LOC: D.CATH 06:23
PROVIDERS: ATTEND Internal Medicine Cardiovascular Disease
DX: I25.110 Atherosclerotic heart disease of native coronary artery with unstable angina pectoris (principal); I10 Essential (primary) hypertension; E78.5 Hyperlipidemia, unspecified; E11.9 Type 2 diabetes mellitus without complications; Z79.84 Long term (current) use of oral hypoglycemic drugs; Z95.0 Presence of cardiac pacemaker
CPT/HCPCS: 93458; C9600

== ENCOUNTER → 2021-05-01 08:48 | Outpatient (CLI) | payer MEDICARE ==
[2020-01-07 07:07] VITALS: BMI 35.3
== END | disposition home or self-care (01) ==
LOC: D.HCCECHO 08:48
PROVIDERS: ATTEND Internal Medicine Cardiovascular Disease
DX: I25.10 Atherosclerotic heart disease of native coronary artery without angina pectoris (principal)